=== PATIENT | male | born 1975 | race Caucasian/White ===

== ENCOUNTER 2019-06-17 20:47 | Emergency (ER) | payer OTHER ==
[~2019-06-17] VITALS: Ht 167.6 cm; Wt 112.0 kg
[2019-06-17 20:53] VITALS: Ht 167.6 cm; Wt 112.0 kg
[2019-06-17 21:59] VITALS: BP 139/87
== END 2019-06-17 21:59 | disposition home or self-care (01) ==
LOC: ED 20:47
DX: T15.82XA Foreign body in other and multiple parts of external eye, left eye, initial encounter (principal); X58.XXXA Exposure to other specified factors, initial encounter; Y93.89 Activity, other specified; Y92.89 Other specified places as the place of occurrence of the external cause; Y99.8 Other external cause status